=== PATIENT | male | born 1970 | race African-American/Black ===

== ENCOUNTER 2018-07-05 13:34 | Outpatient (CLI) | payer BC ==
[2018-07-05] MEDS ORDERED: Gadobenate Dimeglumine 529 MG/1 ML (20ML VIAL) ONE (15:09)
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
== END 2018-07-05 13:35 | disposition home or self-care (01) ==
LOC: TBSIIMAG 13:34
PROVIDERS: ATTEND Emergency Medicine Sports Medicine
DX: M54.12 Radiculopathy, cervical region (principal); S13.9XXD Sprain of joints and ligaments of unspecified parts of neck, subsequent encounter; M62.838 Other muscle spasm; Z87.898 Personal history of other specified conditions
CPT/HCPCS: 72156; A9579

== ENCOUNTER 2018-07-20 14:06 | Outpatient (CLI) | payer BC ==
--- NOTE | 2018-07-20 15:35 | RAD ---
CERVICAL SPINE RADIOGRAPH SERIES 5 VIEWS: INDICATION: Cervical radiculopathy. FINDINGS: There is straightening of the normal cervical curvature. Prevertebral soft tissues are normal in leni iber. There is enthesophyte formation at the ventral aspect of C1. Lateral masses of C1 are appropr iately aligned. Odontoid process is intact, where visualized. Flexion and extension views performed which reveal no obvious translational motion. Neutral lateral view reveals no significant subluxati on. IMPRESSION: No significant listhesis or translational motion identified. POS: [facility]
--- NOTE | 2018-07-20 15:45 | CT ---
CT CERVICAL SPINE WITHOUT CONTRAST: 07/20/18 HISTORY: Cervical radiculopathy. COMPARISON: None. CORRELATION: Cervical spine MRI 07/05/18. TECHNIQUE: CT cervical spine is performed without intravenous or intrathecal contrast administration. FINDINGS: Cervical spine vertebral body height is maintained. No fracture. Straightening of normal cervical neela dosis is presumed to be due to patient position or muscle spasm. Current study is not tailored for li gamentous injury. Correlation is made with a previous cervical spine MRI does not demonstrate any sig nificant STIR hyperintensity to suggest ligamentous injury. Soft tissue neck structures are unremarkable. Upper mediastinum and lung apices are also unremarkable . Cervical spine vertebral body height is maintained. There is no fracture. Limited evaluation of the c entral spinal canal and neural foramina due to technique. C2-C3: No significant central canal stenosis. Neural foramina are patent. C3-C4: No significant central canal stenosis. Neural foramina are patent. C4-C5: No significant central canal stenosis. Foramina are patent. C5-C6: No significant central canal stenosis. Foramina are patent. C6-C7: No significant central canal stenosis or foraminal narrowing. C7-T1: No significant central canal stenosis or foraminal narrowing. IMPRESSION: No significant central canal stenosis or foraminal narrowing. POS: [facility]
== END 2018-07-20 14:07 | disposition home or self-care (01) ==
LOC: BICCT 14:06
PROVIDERS: ATTEND Neurological Surgery
DX: M54.12 Radiculopathy, cervical region (principal)
CPT/HCPCS: 72050; 72125